=== PATIENT | male | born 1970 | race Caucasian/White ===

== ENCOUNTER 2018-12-26 15:06 | Emergency (ER) | payer SELFPAY ==
[~2018-12-26] VITALS: Ht 182.9 cm; Wt 100.0 kg
[2018-12-26 15:14] VITALS: BP 134/79; TEMP 98.3
--- NOTE | 2018-12-26 16:00 | NUR ---
JUAN responded to an ED consult. ED nurse reports patient is concerned about his financial and insurance situation. 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 Patient reports his insurance will be reinstated but not until he goes back to work. Patient contacted Olga, financial counselor, about options for patient. Olga reports patient should complete a financial assistance application for the hospital and contact the social security office to apply for disabilty. Olga also requested SW give patient her phone number and request patient contact her for an appointment. JUAN provided the [place] social security office phone number and also Olga's number. Patient was very appreciative and reports he will contact both Olga and the social security office.
[2018-12-26 16:10] LABS: BASO # 0.1 (0.0-0.2); BASO % 0.7 % (0.0-2.0); EOS # 0.2 (0.0-0.7); EOS % 1.8 % (0-4.0); GRAN # 6.7 (1.4-6.5); GRAN % 71.3 % (42.2-75.2); HEMOGLOBIN 15.6 g/dl (13.5-18.0); LYMPH # 1.8 (1.2-3.4); LYMPH % 19.6 % (20.0-51.0); MEAN CELL VOLUME 88 fl (80.0-100.0); MEAN CORPUSCULAR HEMOGLOBIN 31 pg (27.0-31.0); MEAN CORPUSCULAR HGB CONC 35 g/dl (33.0-37.0); MEAN PLATELET VOLUME 8.9 fl (7.4-10.4); MONO # 0.6 (0.1-0.6); MONO % 6.2 % (1.7-9.3); PLATELET COUNT 253 K/mm3 (130-400); REDCELL DISTRIBUTION WIDTH-CV 12.3 % (11.5-14.5)
[2018-12-26 16:20] LABS: ACETONE,SERUM NEGATIVE
[2018-12-26 16:21] LABS: ALANINE AMINOTRANSFERASE 22 U/L (21-72); ALBUMIN 3.9 gm/dL (3.5-5.0); ALKALINE PHOSPHATASE 76 U/L (50-136); ANION GAP 7 mmol/L (7-16); AST,SGOT 18 U/L (15-37); BILIRUBIN,TOTAL 0.4 mg/dL (0.0-1.0); BLOOD UREA NITROGEN 13 mg/dL (9-20); CALCIUM 9.1 mg/dL (8.4-10.2); CARBON DIOXIDE 27 mmol/L (22-30); CHLORIDE 102 mmol/L (98-107); CREATININE, serum 0.62 mg/dL (0.66-1.25); GLUCOSE 278 mg/dL (74-106); POTASSIUM 4.1 mmol/L (3.4-5.0); SODIUM 136 mmol/L (137-145); TOTAL PROTEIN 6.9 gm/dL (6.4-8.2)
[2018-12-26 16:39] LABS: C-REACTIVE PROTEIN < 0.5 mg/dL (0.0-0.9)
[2018-12-26] MEDS ORDERED: DOXYCYCLINE 10100 MG PO (17:29)
[2018-12-26] MEDS ORDERED: CEPHALEXIN500 M1 PO (17:29)
[2018-12-26 17:45] VITALS: PULSE 89
== END 2018-12-26 17:45 | disposition home or self-care (01) ==
LOC: COL.ER 15:06
PROVIDERS: Nurse Practitioner
DX: E11.621 Type 2 diabetes mellitus with foot ulcer (principal); E11.40 Type 2 diabetes mellitus with diabetic neuropathy, unspecified; Z79.4 Long term (current) use of insulin; Z91.14 Patient's other noncompliance with medication regimen

== ENCOUNTER 2019-03-05 16:30 | Outpatient (RCR) | payer OTHER ==
[~2019-03-05 16:30] MED LIST: AFREZZA12 UNIT; CEPHALEXIN500 M1 PO; DIFLUCAN150 MG PO; DOXYCYCLINE 10100 MG PO; INSULIN N (N100 U/ML SQ; LANTUS100 U/ML SQ; NORCO 325 MG-51 TAB PO
== END 2019-03-07 10:38 | disposition home or self-care (01) ==
LOC: WSOH 16:30
DX: S91.105A Unspecified open wound of left lesser toe(s) without damage to nail, initial encounter (principal); Y92.61 Building [any] under construction as the place of occurrence of the external cause; W22.8XXA Striking against or struck by other objects, initial encounter; Y93.H3 Activity, building and construction; Y99.0 Civilian activity done for income or pay; E11.40 Type 2 diabetes mellitus with diabetic neuropathy, unspecified; Z79.4 Long term (current) use of insulin; Z89.422 Acquired absence of other left toe(s)

== ENCOUNTER 2019-05-11 18:07 | Emergency (ER) | payer BC ==
[~2019-05-11] VITALS: Ht 182.9 cm; Wt 100.0 kg
[2019-05-11 18:16] VITALS: TEMP 98.7
[2019-05-11 18:44] LABS: BASO # 0.1 (0.0-0.2); BASO % 0.5 % (0.0-2.0); EOS # 0.3 (0.0-0.7); EOS % 2.5 % (0-4.0); GRAN # 5.8 (1.4-6.5); GRAN % 58.3 % (42.2-75.2); HEMATOCRIT 41.1 % (42.0-52.0); HEMOGLOBIN 14.2 g/dl (13.5-18.0); LYMPH # 3.1 (1.2-3.4); LYMPH % 31.1 % (20.0-51.0); MEAN CELL VOLUME 88 fl (80.0-100.0); MEAN CORPUSCULAR HEMOGLOBIN 30 pg (27.0-31.0); MEAN CORPUSCULAR HGB CONC 35 g/dl (33.0-37.0); MEAN PLATELET VOLUME 8.9 fl (7.4-10.4); MONO # 0.7 (0.1-0.6); MONO % 6.7 % (1.7-9.3); PLATELET COUNT 237 K/mm3 (130-400); RED BLOOD COUNT 4.67 M/mm3 (4.20-5.60); REDCELL DISTRIBUTION WIDTH-CV 12.5 % (11.5-14.5)
[2019-05-11 18:51] LABS: ACETONE,SERUM NEGATIVE
[2019-05-11 18:52] LABS: COLLECTION METHOD CLEAN CATCH
[2019-05-11 18:56] LABS: ALANINE AMINOTRANSFERASE 25 U/L (21-72); ALBUMIN 3.6 gm/dL (3.5-5.0); ALKALINE PHOSPHATASE 71 U/L (50-136); ANION GAP 10 mmol/L (7-16); AST,SGOT 21 U/L (15-37); BILIRUBIN,TOTAL 0.2 mg/dL (0.0-1.0); BLOOD UREA NITROGEN 19 mg/dL (9-20); CARBON DIOXIDE 26 mmol/L (22-30); CHLORIDE 100 mmol/L (98-107); CREATININE, serum 0.49 (0.66-1.25); LIPASE 58 U/L (23-300); POTASSIUM 4.2 mmol/L (3.4-5.0); SODIUM 135 mmol/L (137-145); TOTAL PROTEIN 6.2 gm/dL (6.4-8.2)
[2019-05-11 19:00] LABS: GLUCOSE 402 mg/dL (74-106)
[2019-05-11 19:00] LABS: PH 6 (5-8); SQUAMOUS EPITHELIAL 0-2 /hpf; URINE APPEARANCE Clear; URINE BACTERIA None Seen /hpf; URINE BILIRUBIN Negative (NEGATIVE); URINE BLOOD Negative (NEGATIVE); URINE COLOR Straw; URINE GLUCOSE 3+ (NEGATIVE); URINE KETONE Negative (NEGATIVE); URINE LEUKOCYTE ESTERASE Negative (NEGATIVE); URINE NITRATE Negative (NEGATIVE); URINE PROTEIN(semi-quant) 1+ (NEGATIVE); URINE RBC 0-2 /hpf; URINE UROBILINOGEN Negative (NEGATIVE)
[2019-05-11 19:25] LABS: ARTERIAL BLD GAS O2 SATURATION 95.3 % (92-100); ARTERIAL BLD GAS TCO2 CT 25.2; ARTERIAL BLOOD GAS PCO2 37.1 mmHg (35-45); ARTERIAL BLOOD GAS PO2 79.4 mmHg (80-100); ARTERIAL BLOOD GAS pH 7.43 (7.35-7.45)
[2019-05-11 21:00] VITALS: BP 126/78; PULSE 87
[2019-05-11] MEDS ORDERED: DOXYCYCLINE 10100 MG PO (21:02)
== END 2019-05-11 21:21 | disposition home or self-care (01) ==
LOC: COL.ER 18:07
PROVIDERS: Emergency Medicine
DX: E11.65 Type 2 diabetes mellitus with hyperglycemia (principal); L03.012 Cellulitis of left finger; L03.317 Cellulitis of buttock; F17.210 Nicotine dependence, cigarettes, uncomplicated; Z98.890 Other specified postprocedural states; Z79.4 Long term (current) use of insulin
CPT/HCPCS: A4216; J0696; J1170; J1815; J7030

== ENCOUNTER 2019-07-26 15:11 | Inpatient (IN) | payer OTHER ==
[~2019-07-26] VITALS: Ht 182.9 cm; Wt 90.2 kg
[2019-07-26 16:30] LABS: BASO # 0.1 (0.0-0.2); BASO % 0.4 % (0.0-2.0); EOS # 0.1 (0.0-0.7); GRAN # 9.8 (1.4-6.5); GRAN % 74.2 % (42.2-75.2); HEMATOCRIT 42.6 % (42.0-52.0); HEMOGLOBIN 14.6 g/dl (13.5-18.0); LYMPH # 2.3 (1.2-3.4); LYMPH % 17.3 % (20.0-51.0); MEAN CELL VOLUME 90 fl (80.0-100.0); MEAN CORPUSCULAR HEMOGLOBIN 31 pg (27.0-31.0); MEAN CORPUSCULAR HGB CONC 34 g/dl (33.0-37.0); MEAN PLATELET VOLUME 9.1 fl (7.4-10.4); MONO # 0.9 (0.1-0.6); MONO % 6.6 % (1.7-9.3); PLATELET COUNT 261 K/mm3 (130-400); RED BLOOD COUNT 4.76 M/mm3 (4.20-5.60); REDCELL DISTRIBUTION WIDTH-CV 12.7 % (11.5-14.5)
[2019-07-26 16:42] LABS: ALBUMIN 4.1 gm/dL (3.5-5.0); BILIRUBIN,TOTAL 0.4 mg/dL (0.0-1.0); C-REACTIVE PROTEIN 2.8 mg/dL (0.0-0.9); CALCIUM 8.6 mg/dL (8.4-10.2); CREATININE, serum 0.56 (0.66-1.25); POTASSIUM 4.3 mmol/L (3.4-5.0); TOTAL PROTEIN 7.4 gm/dL (6.4-8.2)
[2019-07-26] MEDS ORDERED: CEPHALEXIN500 M1 PO ×2 (17:07)
[2019-07-26] MEDS ORDERED: DOXYCYCLINE 10100 MG PO ×2 (17:07)
--- NOTE | 2019-07-26 20:15 | NUR ---
Patient arrived to the unit at this time to room 330. Initial assessment completed. BRITTANY Kunz assisted with the med rec. NS started at 150 ml/hr. Night time medications given. Patient reports some "leaking" from his right toe. Requested PRN norco and dilaudid for pain in right foot. Denied any further needs at this time. Call light within reach.
[2019-07-26] MEDS ORDERED: PRINIVIL10 MG PO (20:28)
[2019-07-26] MEDS ORDERED: LYRICA 75MG CAP75 MG PO (20:30)
[2019-07-26] MEDS ORDERED: GLUCOPHAGE500 MG/TAB PO (20:30)
[2019-07-26] MEDS ORDERED: GLUCOPHAGE XR500 M1 PO (20:32)
[2019-07-26] MEDS ORDERED: NOVOLIN N100 U/ML SQ (20:36)
[2019-07-26] MEDS ORDERED: NOVOLIN R100 U/ML SQ (20:36)
[2019-07-26 21:11] VITALS: BP 130/73; PULSE 81; TEMP 98.1
--- NOTE | 2019-07-27 03:43 | NUR ---
Patient requested another dose of norco and dilaudid for pain. Patient very pleasant with cares. Call light within reach.
[2019-07-27 04:00] VITALS: BP 115/70; PULSE 76; TEMP 98.1
--- NOTE | 2019-07-27 05:56 | NUR ---
Patient has received two doses of dilaudid and norco for pain in the right foot. Zojeron running currently.
--- NOTE | 2019-07-27 06:23 | NUR ---
Patient transferred to medical floor room 353 at this time.
--- NOTE | 2019-07-27 06:23 | NUR ---
Patient was tranferred to medical unit at this time. LORETTA Sharp will take over his care.
[2019-07-27 07:26] LABS: ALBUMIN 3.2 gm/dL (3.5-5.0); BILIRUBIN,TOTAL 0.3 mg/dL (0.0-1.0); CALCIUM 8.2 mg/dL (8.4-10.2); CREATININE, serum 0.5 (0.66-1.25); INR 0.9 (0.8-3.0); POTASSIUM 3.8 mmol/L (3.4-5.0); PROTHROMBIN TIME 10.8 SECONDS (9.7-12.8); TOTAL PROTEIN 6.1 gm/dL (6.4-8.2)
[2019-07-27 07:50] LABS: BASO # 0.1 (0.0-0.2); BASO % 0.7 % (0.0-2.0); EOS # 0.2 (0.0-0.7); EOS % 2.6 % (0-4.0); GRAN # 5.4 (1.4-6.5); GRAN % 57.9 % (42.2-75.2); HEMATOCRIT 39.1 % (42.0-52.0); HEMOGLOBIN 13.1 g/dl (13.5-18.0); LYMPH # 2.9 (1.2-3.4); LYMPH % 30.8 % (20.0-51.0); MEAN CELL VOLUME 90 fl (80.0-100.0); MEAN CORPUSCULAR HEMOGLOBIN 30 pg (27.0-31.0); MEAN CORPUSCULAR HGB CONC 34 g/dl (33.0-37.0); MONO # 0.7 (0.1-0.6); MONO % 7.5 % (1.7-9.3); PLATELET COUNT 227 K/mm3 (130-400); RED BLOOD COUNT 4.36 M/mm3 (4.20-5.60); REDCELL DISTRIBUTION WIDTH-CV 12.7 % (11.5-14.5)
[2019-07-27 08:01] VITALS: BP 108/62; PULSE 74; TEMP 98.1
--- NOTE | 2019-07-27 09:22 | NUR ---
Pt assessment complete. Pt is laying in bed upon entry, he is A/O x4. His breathing is even and unlabored on RA. Pt denies SOB. No N/V. Pain 10/25 at this time to R foot. Ulceration to R second toe has no dressing in place, oozing and redness present. IVF infusing without complications. POC discussed with patient who verbalizes understading. No needs at this time. Call [facility] within reach.
[2019-07-27 11:54] VITALS: BP 125/75; PULSE 81; TEMP 98.5
[2019-07-27 16:56] VITALS: BP 128/72; PULSE 77; TEMP 98.3
--- NOTE | 2019-07-27 18:33 | NUR ---
Pt had uneventful day. Had minimal pain to R foot, but worsened with movement and ambulation. Pt aware of POC, will remain NPO after midnight. IVF infusing without complications. No needs at this time. Call light within reach.
[2019-07-27 19:58] VITALS: BP 129/69; PULSE 75; TEMP 98.5
[2019-07-27 23:48] VITALS: BP 145/77; PULSE 75; TEMP 98.3
[2019-07-28] VITALS (11 sets, daily range): BP systolic 112–137; BP diastolic 22–80; PULSE 66–83; TEMP 97.7–98.3
[2019-07-28 06:17] LABS: BASO # 0.1 (0.0-0.2); BASO % 0.6 % (0.0-2.0); EOS # 0.3 (0.0-0.7); EOS % 2.6 % (0-4.0); GRAN # 6.3 (1.4-6.5); GRAN % 60.8 % (42.2-75.2); HEMATOCRIT 41.7 % (42.0-52.0); HEMOGLOBIN 14.1 g/dl (13.5-18.0); LYMPH % 28.6 % (20.0-51.0); MEAN CELL VOLUME 90 fl (80.0-100.0); MEAN CORPUSCULAR HEMOGLOBIN 30 pg (27.0-31.0); MEAN CORPUSCULAR HGB CONC 34 g/dl (33.0-37.0); MEAN PLATELET VOLUME 8.9 fl (7.4-10.4); MONO # 0.7 (0.1-0.6); MONO % 6.8 % (1.7-9.3); PLATELET COUNT 245 K/mm3 (130-400); RED BLOOD COUNT 4.66 M/mm3 (4.20-5.60); REDCELL DISTRIBUTION WIDTH-CV 12.6 % (11.5-14.5)
[2019-07-28 06:21] LABS: INR 0.9 (0.8-3.0); PROTHROMBIN TIME 10.4 SECONDS (9.7-12.8)
[2019-07-28 06:33] LABS: ALBUMIN 3.5 gm/dL (3.5-5.0); BILIRUBIN,TOTAL 0.2 mg/dL (0.0-1.0); CALCIUM 8.3 mg/dL (8.4-10.2); CREATININE, serum 0.58 (0.66-1.25); TOTAL PROTEIN 6.5 gm/dL (6.4-8.2)
--- NOTE | 2019-07-28 07:11 | NUR ---
REPORT GIVEN TO JOSSY. PT SLEEPING IN ROOM, CALL LIGHT WITHIN REACH, NO OTHER CONCERNS. HE WILL BE GOING TO SURGERY TODAY FOR RIGHT SECOND TOE REMOVAL.
--- NOTE | 2019-07-28 10:30 | NUR ---
PATIENT ASSESSMENT COMPLETED. PATIENT VOIDED PRIOR TO SURGERY. HIS RIGHT MIDDLE TOE WAS RED WITH TISSUE BREAKDOWN AND RED STREAKING ABOUT 1 1/2" UP HIS FOOT. AREA AROUND TOE WAS VERY TENDER AND WARM TO TOUCH. PATIENT TRANSPORTED TO SURGERY VIA HOSPITAL BED.
--- NOTE | 2019-07-28 11:47 | NUR ---
Patient lives at home with his (Sree Shirley [phone]) in [place], [place] and plans to return home upon recovery. Patient is independent with daily living activities and works for [employer]. Patient has uncontrolled type II diabetes and has no durable medical equipment usage at this time. Patient's primary care physician is Dr. Maryjo Escobar, his pharmacy is [facility], and he does not have advance directives for healthcare completed at this time. No further needs and social serivces will follow up as needed.
--- NOTE | 2019-07-28 12:11 | NUR ---
PATIENT NOT IN ROOM YET
--- NOTE | 2019-07-28 12:16 | NUR ---
PATIENT RETURNS TO ROOM 353. HE IS ALERT AND ORIENTED. AMBULATES TO THE RESTROOM WITH STANDBY ASSIST. HE DENIES ANY DIZZINESS AT THAT TIME. REQUESTED PAIN PILL. THIS WILL BE PROVIDED
--- NOTE | 2019-07-28 13:09 | NUR ---
PATIENT IN BED EATING LUNCH. DENIES COMPLAINTS AT THIS TIME.
--- NOTE | 2019-07-28 13:33 | NUR ---
PATIENT REPORTS VERY LITTLE PAIN. DRESSING/BOOT IN PLACE NO DRAINAGE NOTED. TOLERATES LUNCH WITH NO DIFFICULTY. NO NEEDS AT THIS TIME.
--- NOTE | 2019-07-28 15:10 | NUR ---
PATIENT SLEEPING IN BED. NO SIGNS OF DISTRESS
--- NOTE | 2019-07-28 16:36 | NUR ---
PATIENT REPORTS FOOT STARTING TO WAKE UP WITH LITTLE PAIN NOTED. WE HAVE ELEVATED THE RIGHT FOOT WITH A PILLOW X1
[2019-07-29] VITALS: BP 135/77; PULSE 70; TEMP 98.3
[2019-07-29 04:47] VITALS: BP 118/67; PULSE 81; TEMP 98
[2019-07-29 07:14] LABS: BASO # 0.1 (0.0-0.2); BASO % 0.4 % (0.0-2.0); EOS # 0.2 (0.0-0.7); EOS % 1.9 % (0-4.0); GRAN # 8.4 (1.4-6.5); GRAN % 70.9 % (42.2-75.2); HEMATOCRIT 38.1 % (42.0-52.0); HEMOGLOBIN 12.8 g/dl (13.5-18.0); LYMPH # 2.3 (1.2-3.4); MEAN CELL VOLUME 90 fl (80.0-100.0); MEAN CORPUSCULAR HEMOGLOBIN 30 pg (27.0-31.0); MEAN CORPUSCULAR HGB CONC 34 g/dl (33.0-37.0); MEAN PLATELET VOLUME 8.9 fl (7.4-10.4); MONO # 0.9 (0.1-0.6); MONO % 7.2 % (1.7-9.3); PLATELET COUNT 227 K/mm3 (130-400); RED BLOOD COUNT 4.22 M/mm3 (4.20-5.60); REDCELL DISTRIBUTION WIDTH-CV 12.8 % (11.5-14.5)
--- NOTE | 2019-07-29 07:16 | NUR ---
REPORT GIVEN TO LORETTA RUIZ. NO OTHER CONCERNS AT THIS TIME.
[2019-07-29 07:19] LABS: PROTHROMBIN TIME 11.1 SECONDS (9.7-12.8)
[2019-07-29 07:26] VITALS: BP 124/70; PULSE 90; TEMP 98.4
[2019-07-29 07:34] LABS: ALBUMIN 3.2 gm/dL (3.5-5.0); BILIRUBIN,TOTAL 0.2 mg/dL (0.0-1.0); CREATININE, serum 0.64 (0.66-1.25); POTASSIUM 3.7 mmol/L (3.4-5.0)
--- NOTE | 2019-07-29 09:39 | NUR ---
Pt assessment complete. Pt is sleeping in bed upon entry, he arouses to voice. He is oriented x4. His breathing is even and unlabored on RA. Pt denies SOB. Pt currently reporting pain to R toe/foot 01/23, refusing any pain medications at this time. Pt's foot has dressing and kira wrap in place, CDI, boot on. Pt reports getting up and ambulating without issues. No needs at this time. Call light within reach.
[2019-07-29 11:49] VITALS: BP 123/67; PULSE 77; TEMP 98.1
--- NOTE | 2019-07-29 16:18 | NUR ---
Pt having pain to RUE, very tender to touch, some redness near old IV site. Extremity elevated and warm pack provided.
[2019-07-29 16:24] VITALS: BP 138/76; PULSE 79; TEMP 98.9
--- NOTE | 2019-07-29 19:38 | NUR ---
Pt had uneventful day. Pain minimal, worse when up ambulating. PRN pain medications helped. IV to L hand free from complications. Pt denies any needs at this time. Report given to LORETTA Guillen. Call light within reach.
[2019-07-29 20:22] VITALS: BP 133/69; PULSE 82; TEMP 98.4
--- NOTE | 2019-07-29 20:57 | NUR ---
PATIENT C/O ABD CRAMPING. STATES "I THINK IM GETTING REALLY CONSTIPATED". HYPOACTIVE BOWEL SOUNDS IN ALL QUADRANTS. REPORTS LAST STOOL APPROX 3 DAYS AGO. CALL TO ONCALL PROVIDER ORDERS RECEIVED FOR COLACE 100MG BID AND MIRALAX 17GM PO NOW X 1.
[2019-07-30 00:23] VITALS: BP 141/76; PULSE 82; TEMP 98
[2019-07-30 05:06] VITALS: BP 124/73; PULSE 73; TEMP 98.2
[2019-07-30 07:03] LABS: BASO % 0.4 % (0.0-2.0); EOS # 0.2 (0.0-0.7); EOS % 2.4 % (0-4.0); GRAN # 5.6 (1.4-6.5); GRAN % 61.7 % (42.2-75.2); HEMOGLOBIN 12.5 g/dl (13.5-18.0); LYMPH # 2.5 (1.2-3.4); MEAN CELL VOLUME 89 fl (80.0-100.0); MEAN CORPUSCULAR HEMOGLOBIN 30 pg (27.0-31.0); MEAN CORPUSCULAR HGB CONC 34 g/dl (33.0-37.0); MEAN PLATELET VOLUME 9.1 fl (7.4-10.4); MONO # 0.7 (0.1-0.6); MONO % 7.4 % (1.7-9.3); PLATELET COUNT 209 K/mm3 (130-400); RED BLOOD COUNT 4.14 M/mm3 (4.20-5.60); REDCELL DISTRIBUTION WIDTH-CV 12.6 % (11.5-14.5)
[2019-07-30 07:15] LABS: HEMATOCRIT 36.7 % (42.0-52.0)
[2019-07-30 07:18] LABS: CALCIUM 8.1 mg/dL (8.4-10.2); CREATININE, serum 0.55 (0.66-1.25); POTASSIUM 3.8 mmol/L (3.4-5.0)
[2019-07-30 07:30] VITALS: BP 127/77; PULSE 73; TEMP 98
--- NOTE | 2019-07-30 11:00 | NUR ---
Patient has been sleeping most the morning. His IV was burning with flushing this am. DIscontinued the IV. Patient stated the area was not sore to touch but is very painful with flushing. Dressing to right foot is C/D/I, he has the surgical shoe on. No complaints of pain or nausea this am. No other changes at this time. Call light within reach.
[2019-07-30 11:30] VITALS: BP 134/70; PULSE 76; TEMP 97.8
[2019-07-30] MEDS ORDERED: CEFTIN500 MG PO (13:16)
[2019-07-30] MEDS ORDERED: TYLENOL 325MG325 MG PO (13:17)
[2019-07-30] MEDS ORDERED: NORCO 325 MG-51 TAB PO (13:17)
[2019-07-30] MEDS ORDERED: ASPIRIN 81M81 MG/TA2 PO (13:23)
--- NOTE | 2019-07-30 14:50 | NUR ---
Patient is discharging home. Discharge instructions discussed with patient. No questions verbalized. Explained he has a prescription for [place] to take to the pharmacy to get filled. Also explained he has prescriptions at the pharmacy waiting for him. Explained when his follow up appointments are. No quesitions verbalized. All belongings packed up and sent with patient. Patient walked out with this nurse.
== END 2019-07-30 14:50 | disposition home or self-care (01) | DRG 854 ==
LOC: COL.ER 15:11 → MEDICAL 18:20 → JCC 18:20 → MEDICAL 07-27 06:19
PROVIDERS: Emergency Medicine; Nurse Practitioner Family; Orthopaedic Surgery; Physician Assistant; ADMIT Hospitalist
PROC: 0Y6R0Z3 Detachment at Right 2nd Toe, Low, Open Approach (ICD-10-PCS; principal; 2019-07-28 12:00)
DX: A41.51 Sepsis due to Escherichia coli [E. coli] (principal); M86.9 Osteomyelitis, unspecified; E87.2 Acidosis; E11.621 Type 2 diabetes mellitus with foot ulcer; E11.69 Type 2 diabetes mellitus with other specified complication; E11.65 Type 2 diabetes mellitus with hyperglycemia; F17.210 Nicotine dependence, cigarettes, uncomplicated; F12.90 Cannabis use, unspecified, uncomplicated; L97.519 Non-pressure chronic ulcer of other part of right foot with unspecified severity; J44.9 Chronic obstructive pulmonary disease, unspecified; B96.4 Proteus (mirabilis) (morganii) as the cause of diseases classified elsewhere; E11.42 Type 2 diabetes mellitus with diabetic polyneuropathy; Z89.422 Acquired absence of other left toe(s); Z79.4 Long term (current) use of insulin; Z88.1 Allergy status to other antibiotic agents
CPT/HCPCS: 99222-AI; 99232-AI; 99239; A4216; J0690; J0696; J1170; J1644; J1815; J2405; J2543; J2704; J2795; J3010; J7030